=== PATIENT | female | born 1975 | race American Indian/Alaskan Native ===

== ENCOUNTER 2018-11-04 19:22 | Emergency (ER) | payer BC ==
--- NOTE | 2018-11-04 19:29 | PDOC ---
History of Present Illness - General History Source: Patient Exam Limitations: No Limitations - History of Present Illness Initial Comments: 11/04/18 20:09 The patient is a 43 year old female, with a significant PMH of asthma, who presents to the emergency department with a thumb injury that occured today. The patient states she was using her sewing machine when an industrial needle went through her right thumb. The needle went through her mid proximal thumb and exits from the radial aspect of the distal lateral nail fold. The patient states she is able to move her thumb but experiences excruciating pain and mild bleeding to the site. She states the needle has been in her thumb for about 20 mins. The patient denies numbness or tingling to the fingers. Denies any discoloration to the fingers. Denies any loss of movement. Allergies: aspirin, ibuprofen Past surgical history: None reported Social history:Drinks alcohol occasionally but denies smoking or use of recreational drugs. PCP: None reported <Barbara Duckworth - Last Filed: 11/04/18 20:21> <Akanksha Navas - Last Filed: 11/05/18 03:57> - General Chief Complaint: Foreign Body (FB) Stated Complaint: RT THUMB SEWING MACHINE NEEDLE Time Seen by Provider: 11/04/18 19:26 Past History <Barbara Duckworth - Last Filed: 11/04/18 20:21> - Past Medical History Asthma: Yes - Suicide/Smoking/Psychosocial Hx Smoking History: Never smoked Hx Alcohol Use: Yes Substance Use Type: None <Akanksha Navas - Last Filed: 11/05/18 03:57> - Past Medical History Allergies/Adverse Reactions: Allergies Allergy/AdvReac Type Severity Reaction Status Date / Time aspirin Allergy Swelling Verified 11/04/18 19:26 ibuprofen Allergy Verified 11/04/18 19:26 Home Medications: Ambulatory Orders Sertraline HCl [Zoloft] 75 mg PO DAILY 09/16/14 Cephalexin Monohydrate [Keflex -] 500 mg PO Q8H #12 capsule 11/04/18 Tramadol HCl 50 mg PO TID PRN #12 tablet MDD 3 tabs 11/04/18 Review of Systems - Review of Systems Able to Perform ROS?: Yes Comments:: 11/04/18 20:10 GENERAL/CONSTITUTIONAL: No fever or chills. No weakness. HEAD, EYES, EARS, NOSE AND THROAT: No change in vision. No ear pain or discharge. No sore throat. CARDIOVASCULAR: No chest pain or shortness of breath. RESPIRATORY: No cough, wheezing, or hemoptysis. GASTROINTESTINAL: No nausea, vomiting, diarrhea or constipation. GENITOURINARY: No dysuria, frequency, or change in urination. MUSCULOSKELETAL:+Right thumb pain. SKIN: No rash NEUROLOGIC: No headache, vertigo, loss of consciousness, or change in strength/ sensation. ENDOCRINE: No increased thirst. No abnormal weight change. HEMATOLOGIC/LYMPHATIC: No anemia, easy bleeding, or history of blood clots. ALLERGIC/IMMUNOLOGIC: No hives or skin allergy. <Barbara Duckworth - Last Filed: 11/04/18 20:21> *Physical Exam - Vital Signs Last Vital Signs Temp Pulse Resp BP Pulse Ox 99.1 F 116 H 20 130/85 98 11/04/18 19:22 11/04/18 19:22 11/04/18 19:22 11/04/18 19:22 11/04/18 19:22 - Physical Exam Comments: 11/04/18 20:10 ADULT EXAM GENERAL: Awake, alert, and fully oriented, in no acute distress HEAD: No signs of trauma EXTREMITIES: +2.5 cm linear metallic foreign body consisting with needle extending mid proximal nail through and exiting radial aspect of the distal lateral nail fold. Full movement of IP joint. No sensory loss noted. cm distal broken fragment of needle is still intact and partially attach to portion at lateral nail fold. NEUROLOGICAL: Cranial nerves II through XII grossly intact. Normal speech, normal gait SKIN: Warm, Dry, normal turgor, no rashes or lesions noted. <Barbara Duckworth - Last Filed: 11/04/18 20:21> Moderate Sedation - Procedure Monitoring Vital Signs: Procedure Monitoring Vital Signs Temperature 99.1 F 11/04/18 19:22 Pulse Rate 116 H 11/04/18 19:22 Respiratory Rate 20 11/04/18 19:22 Blood Pressure 130/85 11/04/18 19:22 O2 Sat by Pulse Oximetry (%) 98 11/04/18 19:22 <Barbara Duckworth - Last Filed: 11/04/18 20:21> Medical Decision Making - Medical Decision Making Documentation has been prepared under my direction and personally reviewed by me in its entirety. I attest that this documented accurately reflects all work, treatment, procedures and medical decision making performed by me. As noted above, this 43-year-old woman presents with a machine sewing needle fragment extending through the distal phalanx of her right thumb. Exam as noted. Right thumb x-ray performed to evaluate for bony injury: Although PA and oblique views appear that the needle has not entered bone, lateral view is equivocal. Preliminary reading by Imaging information security specialist also cannot definitively rule out bony injury/fracture. Dr.Neal Gomez of plastic surgery staff consulted Patient given 1 g Ancef IV and thumb soaked in saline/povidone solution Dr. Gomez removed foreign body as per his consultation note Postprocedure x-ray showed no evidence of retained foreign body or bony injury. Patient will dress the wound as per Dr. Gomez (bacitracin ointment and Band- Aid); patient will be able to wash the area as needed. Keflex 500 mg 3 times a day for 4 days sent to pharmacy: Patient will start in the morning with antibiotic course Follow-up Will be with Dr. Gomez in 1 week The patient has increased pain/swelling/redness in the area of foreign body wound, she should return to the ER. <Akanksha Navas - Last Filed: 11/05/18 03:57> *DC/Admit/Observation/Transfer - Attestations Scribe Attestion: 11/04/18 20:10 GENERAL: Awake, alert, and fully oriented, in no acute distress HEAD: No signs of trauma EXTREMITIES: +2.5 cm linear metallic foreign body consisting with needle extending mid proximal nail through and exiting radial aspect of the distal lateral nail fold. Full movement of IP joint. No sensory loss noted. NEUROLOGICAL: Cranial nerves II through XII grossly intact. Normal speech, normal gait SKIN: Warm, Dry, normal turgor, no rashes or lesions noted. <Barbara Duckworth - Last Filed: 11/04/18 20:21> <Akanksha Navas - Last Filed: 11/05/18 03:57> Diagnosis at time of Disposition: Foreign body of thumb, right Qualifiers: Encounter type: initial encounter Qualified Code(s): S60.351A - Superficial foreign body of right thumb, initial encounter - Discharge Dispostion Disposition: HOME Condition at time of disposition: Stable - Prescriptions Prescriptions: Cephalexin Monohydrate [Keflex -] 500 mg PO Q8H #12 capsule Tramadol HCl 50 mg PO TID PRN #12 tablet MDD 3 tabs PRN Reason: Severe Pain - Patient Instructions Printed Discharge Instructions: DI for Removal of Foreign Body From Skin Additional Instructions: Bacitracin/Band-Aid to wound as needed for the next several days. You can wash wound as needed Keep wound at heart level or above especially for the next 24-48 hours Acetaminophen as needed for mild pain; Ultram 50 mg up to 3 times a day as needed for more severe pain Keflex 500 mg 3 times a day for the next 4 days Return to ER if you have more pain/swelling/redness around the wound Follow-up with Dr. Gomez in one week
[2018-11-04 19:43] VITALS: BP 130/85; PULSE 116; TEMP 99.1; BMI 31.6
[2018-11-04] MEDS ORDERED: CEFAZOLIN 1 GM in DEXTROSE 5%-WATER - 50 ML IVPB ONE (20:20)
[2018-11-04] MEDS ORDERED: ceFAZolin SODIUM 1 GM VIAL ONE (20:23)
[2018-11-04] MEDS ORDERED: DIPHTH,PERTUSS(ACELL),TET 0.5 ML DISP.SYRIN IM ONE ×2 (20:34→20:37)
[2018-11-04] MEDS ORDERED: LIDOCAINE HCL 2% (20ML MULTI-DOSE VIAL) NR ONE (22:26)
--- NOTE | 2018-11-06 21:02 | OP ---
DATE OF OPERATION: 11/04/2018 HISTORY: The patient is seen at the request of her physician, Dr. Akanksha Navas. This is a 43-year-old [place] female who is right-hand dominant who suffered an industrial needle threw the distal tissues of the right thumb. The needle punctures through the nail plate, soft tissues, and exits on the flexor surface of the skin. The injury occurred earlier that evening. The patient is brought to the [facility] Emergency Room for evaluation and treatment. PAST MEDICAL HISTORY: Noncontributory. PAST SURGICAL HISTORY: Noncontributory. REVIEW OF SYSTEMS: Negative for any bleeding, coagulopathy, . PHYSICAL EXAMINATION: HEENT: Head and neck atraumatic. Abdomen: Soft. Extremities: Warm and well perfused. The right thumb has the foreign body that is clearly entering and exiting through the thumb with interruption of the nail plate and underlying tissues. An x-ray shows the foreign body traversing. There does not appear to be an associated fracture. The patient is neurovascularly intact. She is given a gram of Ancef prior to my arrival. The patient and family are counseled on risks, benefits, and alternatives for removal of foreign body and debridement of surrounding tissues including the nail bed and nail plate, understand, and agree to procedure. DESCRIPTION OF PROCEDURE: The finger is given a 3-mL 2% lidocaine plain digital block after which the finger is prepped with alcohol. Using heavy clamp, the needle is removed retrograde along with a separately associated fragment that was attached to the exterior of the needle. With all foreign bodies removed, the nail plate is debrided of its injured surrounding tissue. The wound is copiously irrigated and dressing of bacitracin and Telfa is applied. Instructions for evaluation. The patient is to continue on oral Keflex. Regular washing. Follow up with Dr. Gomez in 4 days. Kaylen STOKES/[id number] cc: Akanksha Navas MD
== END 2018-11-04 23:17 | disposition home or self-care (01) ==
LOC: FER 19:22
PROC: 0JBK0ZZ Excision of Left Hand Subcutaneous Tissue and Fascia, Open Approach (ICD-10-PCS; principal; 2018-11-04)
PROC: 3E03329 Introduction of Other Anti-infective into Peripheral Vein, Percutaneous Approach (ICD-10-PCS; 2018-11-04)
PROC: 3E0234Z Introduction of Serum, Toxoid and Vaccine into Muscle, Percutaneous Approach (ICD-10-PCS; 2018-11-04)
DX: S60.351A Superficial foreign body of right thumb, initial encounter (principal); W20.8XXA Other cause of strike by thrown, projected or falling object, initial encounter; Y93.D2 Activity, sewing; Y92.89 Other specified places as the place of occurrence of the external cause; J45.909 Unspecified asthma, uncomplicated
CPT/HCPCS: 20103; 73140-TC-RT-FY; 90471; 90715; 96365; 99283-25